=== PATIENT | female | born 1955 | race Caucasian/White ===

== ENCOUNTER 2018-10-23 06:53 | Day surgery (SDC) | payer MEDICAID ==
[~2018-10-23] VITALS: Ht 157.5 cm; Wt 72.6 kg
[2018-10-23] MEDS ORDERED: ASPI-1677 PO (07:48)
[2018-10-23] MEDS ORDERED: METO25TA14 PO (07:48)
[2018-10-23] MEDS ORDERED: ORE25 PO (07:48)
[2018-10-23] MEDS ORDERED: LISI5TAB18 PO (07:48)
[2018-10-23] MEDS ORDERED: AMLO5TAB PO (07:48)
[2018-10-23] MEDS ORDERED: LIDOCAINE 2% 100 MG/5 ML UJET TP ONE (10:01)
[2018-10-23] MEDS ORDERED: fentaNYL 0.05 MG/ML VIAL ONE (10:01)
[2018-10-23] MEDS ORDERED: fentaNYL 0.05 MG/ML VIAL IVP ONE (10:50)
== END 2018-10-23 11:15 | disposition home or self-care (01) ==
LOC: MDS 06:53 → MMU 07:00 → MDS 11:15
PROVIDERS: ATTEND Internal Medicine Gastroenterology
DX: K92.1 Melena (principal); I10 Essential (primary) hypertension
CPT/HCPCS: 45378; J3010